=== PATIENT | female | born 1985 | race Caucasian/White ===

== ENCOUNTER → 2017-07-01 | Outpatient (REF) | payer BC ==
[~2017-07-01] MED LIST: ANU28T PR; CYC10 PO; FLU20 PO; IBU200 PO; IBU600 PO; KET10 PO; LOR5/325 PO; MINIPILL; OND4 PO; PREN-127 PO; [UNRECOGNIZED DRUG - CODE] TP
== END ==
LOC: ZZSENDIN 13:56
PROVIDERS: ATTEND Advanced Practice Midwife
DX: Z34.83 Encounter for supervision of other normal pregnancy, third trimester (principal)
CPT/HCPCS: 85018; 87081